=== PATIENT | female | born 1955 | race Caucasian/White ===

== ENCOUNTER 2017-08-24 14:29 | Outpatient (CLI) | payer OTHER ==
[~2017-08-24] VITALS: Ht 149.9 cm; Wt 45.0 kg
[2017-08-24 14:40] VITALS: Ht 149.9 cm; Wt 45.0 kg
[2017-08-24 14:41] VITALS: BP 125/62; PULSE 77; RESP 18
--- NOTE | 2017-08-24 22:48 | CONS ---
DATE OF ADMISSION: 08/24/2017 DATE OF CONSULTATION: 08/24/2017 [facility] OUTPATIENT CONSULTATION NOTE PLACE OF SERVICE: [facility]. REFERRING PHYSICIAN: Esme William MD. Dear Dr. William, Thank you very much for allowing us to continue to participate in the care of this very pleasant lad y and her wonderful family. REASON FOR CONSULTATION: Followup from colostomy repair. HISTORY OF PRESENT ILLNESS: The patient is a very pleasant 62-year-old lady well known to me from o ur initial encounter in August of 2013 where the patient had presented with small-bowel obstructio n which ultimately was found to be from her ostomy site which had herniated and had a small perforat ion with contamination of intra-abdominal fluid, requiring surgical intervention on 08/03/2013 at [facility] by myself. The patient recovered well after this surgery that involved t akedown of prior colostomy as well as repair of a parastomal hernia and resection of distal colon, r esection of parastomal hernia sac and abdominal lavage, with redo end-colostomy. Note that this or iginal operation had been done for stage II colon cancer around 2008 at [facility] by Dr. Dash Reynoso with a Adela's procedure and end-colostomy. She had sepsis at that ti ca, and she was in the hospital for a month with open wound management. She had been offered chemot herapy at that time, but she did not agree to it and as far as I can tell has never received any fur ther therapy for her stage II colon cancer. She was seeking a new physician since her original [facility] physician had and she had seen you, Dr. William, in consultation. You kindly refe rred her to both myself as well as to Dr. Esteban for her needed colonoscopy. She was accompanied t o the office by her daughter and did not have any major new complaints. She has been living life wi th the colostomy and it appears that the colostomy has been telescoping out as its normal usual stat e of existence. No discernible major issues from the colostomy, including no further visits to the hospital or emergency department with parastomal hernia issues. She is having normal bowel movement s and for the most part has been living life without significant issues attributed to the colostomy. She did not seem to mind having the colostomy with the telescoping and no other major complaints. She has had issues with right hip arthritis, and she has had a few other comorbidities but otherwis e life has been fairly acceptable for her for the last 4 years. COMORBIDITIES: 1. History of colon cancer stage II, treated with what appears to be Adela's procedure with desc ending colon resection and end-colostomy in [address] Dash Reynoso at [facility], complicated by sepsis and 1 month hospitalization and open wound healing. 2. Above-mentioned parastomal hernia with obstruction requiring surgical correction at [facility] 08/03/2013, with takedown of prior colostomy and repair of parastomal hernia withou t mesh due to evidence of perforation and contamination of abdominal contents, requiring wide draina ge as well. We also did a resection of distal colon and resection of parastomal hernia sac, with ab dominal lavage and redid the end-colostomy. 3. Nephrolithiasis. 4. Renal disease. 5. Status post x1. 6. Previous history of recurrent intermittent bowel obstruction, at least 6 times from 2010 to 2012 . 7. History of bladder pathology as a young child, status post suprapubic ostomy placement for appro ximately 7 years. ALLERGIES: NO KNOWN DRUG ALLERGIES. MEDICATIONS: Carefully recorded and reviewed in the electronic record system. SOCIAL HISTORY: The patient lives with family. She is a former smoker but not currently. No major alcohol abuse or any intravenous drug use in the past. FAMILY HISTORY: The patient's father had coronary artery disease, stage V on dialysis for about 11 months prior to his . Her mother from complications of sepsis from pneumonia and mult iple decubiti. No other mention of major medical, surgical or oncologic problems in the family. REVIEW OF SYSTEMS: The patient reported no other major pertinent positives or pertinent negatives o n a complete 14-point review of systems. PHYSICAL EXAMINATION: GENERAL: The patient appears to be a very pleasant lady of non- decent, appearing stated age, lying in bed comfortably and in no acute distress. Her BMI is 20. VITAL SIGNS: Appear to be normal with slightly high blood pressure at 125/62. HEENT: Her head is normocephalic and atraumatic. Her extraocular muscles and hearing are grossly i ntact bilaterally and symmetrically. Her sclerae are nonicteric. Her oral cavity is clear, and her oral mucosa appeared to be pink and moist. Her dentition is poor. NECK: Supple. There is no lymphadenopathy or JVD. There is no submental, submandibular or supracl avicular lymphadenopathy. CHEST: Rises symmetrically with each breath, and she is breathing comfortably. There are no audibl e wheezes, rales or rhonchi on the gross exam. PULSES: Her carotid pulses are palpable in her neck bilaterally and symmetrically. Pulse is also p alpable in the right radial region. EXTREMITIES: There is no pitting edema around the ankles bilaterally and symmetrically. ABDOMEN: Soft, nontender and nondistended. There is a well-healed midline incision corresponding t o her initial operation. Her ostomy site contains a pink and viable ostomy which appears to be tele scoping out spontaneously. I did have the patient lie down and with relaxation much of the telescop ing was spontaneously reduced, and I was able to squeeze back most of the telescope bowel back into the abdominal cavity, although I am not 100% certain that there is not a parastomal hernia next to i t. The mucosa itself appeared to be pink and moist and the site around it appeared to be clean. Th ere was no evidence of any peritoneal signs or guarding, and there was no evidence of organomegaly, caput medusae, engorged subcutaneous veins or ascites. SKIN: Otherwise appeared to be pink and felt warm to touch. NEUROLOGIC: She was awake, alert and followed commands appropriately. LABORATORY VALUES: None available for this visit that are recent. IMAGING: No recent images available for this visit. IMPRESSION AND PLAN: A very pleasant 62-year-old lady with a rather complicated past medical and woods rgical history, the most prominent of which was the stage II colon cancer that was resected with a H artmann's procedure in 2008 at [facility] by Dr. Dash Reynoso, with complica tion of bowel obstruction secondary to parastomal hernia approximately 6 times from 2010 to 2012 whi ch was then corrected by an emergency operation that I performed in July of 2013, on August 03 , with parastomal repair, with resection of distal colon and redoing of the ostomy. The patient has done remarkably well given the last 4 years have not been peppered with issues with parastomal trenton ia or bowel obstructions. At my last visit, I had recommended that the patient consider getting a s urveillance colonoscopy, both through the ostomy as well as the transanal examination of the pouch, in order to make sure that there is no other residual polyps or other abnormalities that would requi re further intervention. I had also recommended that she undergo ostomy takedown which would essent ially get rid of the ostomy bag and reconnect her. At that time, she was very anxious about any david gical intervention and she was lost to followup. I re-emphasized my original points to the patient and her daughter. The patient has an appointment to see Dr. Esteban later today and I believe that she is already planning on having the colonoscopy done. I gave her the option of undergoing surgery for reconnection and we will wait to hear back from her regarding her final decision. Overall, the patient has been managing life fairly well and if she chooses to, she can continue to live as is un til we have issues with the colostomy or if she decides to accept the minimal risk that is associate d with reoperative surgery for reconnection. I explained all of the above in the detail to the adela ent and her daughter and answered all of their questions to the best of my ability. I believe that the patient and her family appeared to understand and agreed with the plans. With above assessment, I have recommended the followin. Strongly recommend that the patient undergo surveillance colonoscopy through her ostomy site as well as a proctoscopy to evaluate the remnant rectum transanally. 2. For the patient to consider undergoing colostomy takedown which we can certain schedule for konrad y next year in order to reverse her bag. This has the advantages of getting rid of the ostomy bag a nd allowing us to repair any parastomal hernia site that is residual, definitively likely with the u se of mesh. We will await the patient's and family's decision on this in the near future. 3. I do not believe that there is any need for oncologic care at this time since the patient's orig inal cancer was taken out in 2008, but if the colonoscopy has any concerning findings, we can certai nly change that plan. 4. Follow up with us as needed. Thank you again for allowing us to continue to participate in the care of this very pleasant lady an d her wonderful family. If there are any questions, please feel free to contact me at [phone]. NATURE OF PRESENTING PROBLEM: Low risk. COMPLEXITY OF DECISION MAKING: High complexity. Dictated By: TRE CHARLES/GEN Conf#: [id number] DID#: [id number] CC: ESME WILLIAM; DELONTE ESTEBAN MD;*[facility]*
== END 2017-08-24 17:00 | disposition home or self-care (01) ==
LOC: HPC 14:29
PROVIDERS: ATTEND Transplant Surgery
DX: Z09 Encounter for follow-up examination after completed treatment for conditions other than malignant neoplasm (principal); Z93.3 Colostomy status; Z85.038 Personal history of other malignant neoplasm of large intestine; K43.5 Parastomal hernia without obstruction or gangrene; Z87.442 Personal history of urinary calculi; Z87.891 Personal history of nicotine dependence; Z82.49 Family history of ischemic heart disease and other diseases of the circulatory system; Z84.1 Family history of disorders of kidney and ureter; Z83.6 Family history of other diseases of the respiratory system
CPT/HCPCS: G0463

== ENCOUNTER 2017-09-03 06:54 | Inpatient (IN) | END 2017-09-30 21:15 | disposition home or self-care (01) | DRG 854 ==

== ENCOUNTER 2017-10-12 10:36 | Outpatient (CLI) | END 2017-10-12 15:52 | disposition home or self-care (01) ==

== ENCOUNTER 2017-11-16 11:27 | Outpatient (CLI) | END 2017-11-16 15:30 | disposition home or self-care (01) ==

== ENCOUNTER 2018-01-04 14:16 | Outpatient (CLI) | END 2018-01-04 15:56 | disposition home or self-care (01) ==